=== PATIENT | male | born 1955 | race Caucasian/White ===

== ENCOUNTER 2016-05-29 08:41 | Emergency (ER) | payer OTHER, MEDICARE, BC ==
[~2016-05-29] VITALS: Ht 182.9 cm; Wt 109.0 kg
[~2016-05-29 08:41] MED LIST: ACET325 PO; ALBU17I INH; ASPI81 PO; CARV12.5 PO; CYCL-36 PO; FLUN25I; LEVO.1 PO; LISI-360 PO; METF-324 PO; PRAV40TA PO; PSEU60TA PO; RANI150T PO; WAL-10TA2 PO; [UNRECOGNIZED DRUG - CODE] PO
[2016-05-29 10:15] VITALS: BP 175/81; PULSE 59; RESP 19; O2SAT 99
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
[2016-05-29] MEDS ORDERED: MORPHINE SULFATE 4 MG/ML INJ IV PUSH ONE ×2 (10:30→12:15)
[2016-05-29] MEDS ORDERED: VITA100018 PO (10:53)
[2016-05-29] MEDS ORDERED: ATOR1TAB18 PO (10:53)
[2016-05-29] MEDS ORDERED: METF500T PO (10:53)
[2016-05-29] MEDS ORDERED: LEVO100T5 PO (10:53)
[2016-05-29] MEDS ORDERED: GABA300C5 PO (10:53)
[2016-05-29] MEDS ORDERED: CORE25TA PO (10:53)
[2016-05-29] MEDS ORDERED: FLUT1SPR5 EACH NARE (10:53)
[2016-05-29] MEDS ORDERED: GLIP5TAB8 PO (10:53)
[2016-05-29] MEDS ORDERED: ASPI1TAB91 PO (10:53)
[2016-05-29] MEDS ORDERED: FAMO1TAB37 PO (10:53)
[2016-05-29] MEDS ORDERED: CITA40TA4 PO (10:53)
[2016-05-29] MEDS ORDERED: CYCL1TAB29 PO (10:53)
[2016-05-29 10:55] LABS: AUTOMATED NEUTROPHIL # 2.4 TH/MM3 (1.8-7.7); BASOPHIL % 0.7 % (0.0-2.0); EOSINOPHIL # 0.2 TH/MM3 (0-0.4); EOSINOPHIL % 5.1 % (0.0-4.0); HEMATOCRIT 39.7 % (39.0-51.0); HEMO FLAGS DIFF FINAL; LYMPHOCYTE # 1.6 TH/MM3 (1.0-4.8); MEAN CELL VOLUME 86.6 FL (80.0-100.0); MEAN CORPUSCULAR HEMOGLOBIN 28.9 PG (27.0-34.0); MEAN CORPUSCULAR HGB CONC 33.3 % (32.0-36.0); MONO % 11.5 % (0.0-8.0); NEUT % 49.7 % (16.0-70.0); PLATELET COUNT 105 TH/MM3 (150-450); RED BLOOD COUNT 4.58 MIL/MM3 (4.50-5.90); RED CELL DISTRIBUTION WIDTH 13.8 % (11.6-17.2); WHITE BLOOD COUNT 4.8 TH/MM3 (4.0-11.0)
[2016-05-29 11:03] LABS: BLOOD GAS BASE EXCESS 0.8 mmol/L (-2-2); BLOOD GAS CARBOXYHEMOGLOBIN 0.9 % (0-4); BLOOD GAS HCO3 23 mmol/L (22-26); BLOOD GAS METHEMOGLOBIN 0.5 % (0-2); BLOOD GAS O2 HGB SATURATION 98 % (90-100); BLOOD GAS OXYGEN CONTENT 18.5 Vol % (12.0-20.0); BLOOD GAS PCO2 23 mmHg (38-42); BLOOD GAS PO2 108 mmHG (61-120); BLOOD GAS TOTAL HGB 13.4 G/DL (12.0-16.0); TEMP CORR TO 98.6
[2016-05-29 11:03] LABS: APTT (PATIENT) 31.8 SEC (24.3-30.1); PROTHROMBIN TIME - PATIENT 11.4 SEC (9.8-11.6)
[2016-05-29 11:04] LABS: DRAW SITE RT RADIAL; NUMBER OF ARTERIAL PUNCTURES 1; OXYGEN DEVICE ROOM AIR; STAT YES; ULNAR PULSE PRESENT
[2016-05-29 11:06] VITALS: BP 167/76; PULSE 57; RESP 18; O2SAT 100
[2016-05-29 11:14] LABS: ALT (GPT) 30 U/L (12-78); ANION GAP 9 MEQ/L (5-15); AST (GOT) 39 U/L (15-37); BICARBONATE 24.9 MEQ/L (21.0-32.0); BLOOD UREA NITROGEN 8 MG/DL (7-18); CHLORIDE 104 MEQ/L (98-107); GLOMERULAR FILTRATION RATE 121 ML/MIN (>89); POTASSIUM 3.5 MEQ/L (3.5-5.1); SODIUM (NA) 138 MEQ/L (136-145)
[2016-05-29 11:17] LABS: ALKALINE PHOSPHATASE 57 U/L (45-117); TOTAL BILIRUBIN ADULT 0.4 MG/DL (0.2-1.0)
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
[2016-05-29] MEDS ORDERED: IOHEXOL 350 MG/ML 10 ML VIAL (for RAD DIAG) IV ONE (12:19)
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
[2016-05-29] MEDS ORDERED: HYDR-3533 PO (13:46)
[2016-05-29] MEDS ORDERED: NAPR250T57 PO (13:46)
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
[2016-05-29] MEDS ORDERED: KETOROLAC TROMETHAMINE 30 MG/ML (IVP) VIAL IVP ONE (14:00)
[2016-06-04 06:41] LABS: CRITICAL VALUE YES
== END 2016-05-29 15:17 | disposition home or self-care (01) ==
LOC: NEPC 08:41
DX: M79.1 Myalgia (principal); R20.2 Paresthesia of skin; I10 Essential (primary) hypertension; I25.10 Atherosclerotic heart disease of native coronary artery without angina pectoris; I50.9 Heart failure, unspecified; I25.2 Old myocardial infarction; E78.5 Hyperlipidemia, unspecified; V49.40XA Driver injured in collision with unspecified motor vehicles in traffic accident, initial encounter
CPT/HCPCS: 36600; 70450; 71260; 72125; 72128; 72131; 73564; 74177; 80053; 82805; 85025; 85610; 85730; 86850; 86900; 86901; 96374; 96375; 96376; 99284; J1885; J2270; Q9967